=== PATIENT | male | born 1990 | race Caucasian/White ===

== ENCOUNTER 2018-11-01 12:50 | Emergency (ER) | payer OTHER ==
[~2018-11-01] VITALS: Ht 175.3 cm; Wt 56.7 kg
[~2018-11-01 12:50] MED LIST: AMOCLA500 PO; CEFP200 PO; CLON.5 PO; CLON1 PO; CODGUAEL PO; CYCL10 PO; Cleocin HCl150 MG PO; DEXL60CA3 PO; DICL25ER PO; DICLOFENAC; Flomax0.4 MG PO; GUAPSEER PO; HYDACE5 PO; HYOS.125 SL; IBUP200 PO; IBUP600 PO; IBUP800 PO; KETO10 PO; LISI5 PO; LISINOPRIL; MAGCIT300 PO; META800 PO; NAPR550 PO; NAPROXEN; OMEP20ER PO; ONDA4ODT MM; OXYACE5T PO; OXYACE7.5T PO; OXYC10TA19 PO; OXYC1TAB11 PO; OXYC5 PO; PENVK500 PO; PRED20 PO; PREDNISONE; PROM25 PO; Percocet 5-3251 EACH PO; Prilosec20 MG PO; RXCYCL10 PO; RXNAPNA550 PO; RXOXYACE PO; RXPROM25 PO; RXTRAM50 PO; SENN187 PO; SERT50 PO; SUCR1 PO; SULF10OPO OP; TRAM50 PO; UNKNOWN BP MED; VOLTAREN GEL; Zofran Odt8 MG SL
[2018-11-01 13:25] LABS: BASOPHILS ABSOLUTE AUTO 0.02 K/mm3 (0.00-0.23); BASOPHILS PERCENT AUTO 0 % (0-2); EOSINOPHILS ABSOLUTE AUTO 0.06 K/mm3 (0.00-0.68); EOSINOPHILS PERCENT AUTO 1 % (0-6); Hematocrit 44.3 % (37.0-53.0); Hemoglobin 15.1 g/dL (13.5-17.5); IMMATURE GRAN ABSOLUTE AUTO 0.01 K/mm3 (0.00-0.10); IMMATURE GRAN PERCENT AUTO 0 % (0-1); LYMPHOCYTES ABSOLUTE AUTO 1.19 K/mm3 (0.84-5.20); LYMPHOCYTES PERCENT AUTO 20 % (21-46); MONOCYTES ABSOLUTE AUTO 0.38 K/mm3 (0.16-1.47); MONOCYTES PERCENT AUTO 7 % (4-13); Mean Corpuscular HGB 29.2 pg (26.0-34.0); Mean Corpuscular HGB Conc 34.1 g/dL (31.5-36.5); Mean Corpuscular Volume 86 fL (80-100); Mean Platelet Volume 11.4 fL (9.1-12.4); NEUTROPHILS ABSOLUTE AUTO 4.17 K/mm3 (1.96-9.15); NEUTROPHILS PERCENT AUTO 72 % (41-73); Platelet Count 167 K/mm3 (150-400); RDW Coefficient Variation 12.4 % (11.7-14.2); Red Blood Cell Count 5.17 M/mm3 (4.30-5.90); White Blood Cell Count 5.83 K/mm3 (4.00-11.30)
[2018-11-01 13:48] LABS: Magnesium, Blood 2.1 mg/dL (1.6-2.4)
[2018-11-01 13:50] LABS: Alanine Aminotransfer (ALT/SGP 22 U/L (12-78); Albumin, Blood 4.6 g/dL (3.4-5.0); Albumin/Globulin Ratio 1.6 (0.8-1.8); Alk Phos 116 U/L (50-136); Anion Gap 7 mmol/L (6-16); Aspartate Aminotrans (AST/SGOT 15 U/L (12-37); Bilirubin, Total 0.8 mg/dL (0.1-1.0); Blood Urea Nitrogen 12 mg/dL (8-24); Bun/Creatinine Ratio 12.9 (12.0-20.0); CO2, Blood 27 mmol/L (21-32); Chloride, Blood 108 mmol/L (98-108); Creatinine, Blood 0.93 mg/dL (0.60-1.20); Globulin, Blood 2.9 g/dL (2.2-4.0); Glomerular Filtration Rate >60 (60-); Glucose, Blood 94 mg/dL (70-99); Sodium, Blood 142 mmol/L (136-145); Total Protein, Blood 7.5 g/dL (6.4-8.2)
[2018-11-01] MEDS ORDERED: ACET120S PR (17:15)
[2018-11-01] MEDS ORDERED: HYDR1TAB94 PO (17:15)
[2018-11-01] MEDS ORDERED: Pepcid40 MG PO (17:15)
== END 2018-11-01 17:40 | disposition home or self-care (01) ==
LOC: ER 12:50
PROVIDERS: Physician Assistant
DX: R10.13 Epigastric pain (principal); F17.219 Nicotine dependence, cigarettes, with unspecified nicotine-induced disorders; Z88.8 Allergy status to other drugs, medicaments and biological substances
CPT/HCPCS: 36415; 74177; 80053; 83690; 83735; 85025; 96361-59; 96374-59; 96375-59; 96376-59; 99284-25; C9113; J1170; J2405; J7030; Q9967

== ENCOUNTER 2019-11-07 09:03 | Day surgery (SDC) | payer OTHER ==
[~2019-11-07] VITALS: Ht 175.3 cm; Wt 47.8 kg
[~2019-11-07 09:03] MED LIST changes: +ACET120S PR; +HYDR1TAB94 PO; +ONDA4 PO; +Pepcid40 MG PO
--- NOTE | 2019-11-07 10:19 | NUR ---
11/07/19 Melody9 Blanquita Donald 1ST IV ATTEMPT BY ANABELLE ERIC FAILED. 2ND ATTEMPT BY MD COSTA FAILED. 3RD IV ATTEMPT BY ANABELLE TIRADO FAILED. 4TH IV ATTEMPT BY ANABELLE TIRADO WAS A SUCCESSFUL IV START.
== END 2019-11-07 12:02 | disposition home or self-care (01) ==
LOC: ORSCSDS 09:03
PROVIDERS: Internal Medicine Gastroenterology
PROC: 0DBP8ZX Excision of Rectum, Via Natural or Artificial Opening Endoscopic, Diagnostic (ICD-10-PCS; principal; 2019-11-07 10:30)
PROC: 0DB98ZX Excision of Duodenum, Via Natural or Artificial Opening Endoscopic, Diagnostic (ICD-10-PCS; principal; 2019-11-07 10:30)
PROC: 0DBN8ZX Excision of Sigmoid Colon, Via Natural or Artificial Opening Endoscopic, Diagnostic (ICD-10-PCS; principal; 2019-11-07 10:30)
PROC: 0DB48ZX Excision of Esophagogastric Junction, Via Natural or Artificial Opening Endoscopic, Diagnostic (ICD-10-PCS; principal; 2019-11-07 10:30)
PROC: 0DB78ZX Excision of Stomach, Pylorus, Via Natural or Artificial Opening Endoscopic, Diagnostic (ICD-10-PCS; principal; 2019-11-07 10:30)
DX: R63.4 Abnormal weight loss (principal); R11.2 Nausea with vomiting, unspecified; K21.9 Gastro-esophageal reflux disease without esophagitis; K63.5 Polyp of colon; R10.84 Generalized abdominal pain; K31.9 Disease of stomach and duodenum, unspecified; K29.80 Duodenitis without bleeding; Z87.891 Personal history of nicotine dependence
CPT/HCPCS: 88305; 88342; J2250; J2704; J7120

== ENCOUNTER 2025-05-01 12:15 | Day surgery (SDC) | payer OTHER ==
[~2025-05-01] VITALS: Ht 175.3 cm; Wt 49.3 kg
[~2025-05-01 12:15] MED LIST changes: +AMOCLA875 PO; +BUPRENORPHINE HC8 MG SL; +ONDA4ODT PO
[2025-05-01] MEDS ORDERED: LINZESS72 MCG (12:36)
[2025-05-01] MEDS ORDERED: POTA8 (12:47)
[2025-05-01] MEDS ORDERED: MULVITA (12:47)
[2025-05-01] MEDS ORDERED: IBUP800 (12:48)
[2025-05-01 14:46] VITALS: BP 115/59
== END 2025-05-01 15:01 | disposition home or self-care (01) ==
LOC: ORSCSDS 12:15
PROVIDERS: Internal Medicine Gastroenterology
PROC: 0DJD8ZZ Inspection of Lower Intestinal Tract, Via Natural or Artificial Opening Endoscopic (ICD-10-PCS; principal; 2025-05-01 14:00)
DX: R10.32 Left lower quadrant pain (principal); K59.04 Chronic idiopathic constipation; Z85.89 Personal history of malignant neoplasm of other organs and systems; I10 Essential (primary) hypertension; Z79.899 Other long term (current) drug therapy
CPT/HCPCS: J2704; J7120